=== PATIENT | male | born 1975 | race Caucasian/White ===

== ENCOUNTER → 2016-05-11 | Outpatient (CLI) | payer OTHER ==
--- NOTE | 2016-05-12 16:42 | DX ---
Left knee 4 views Right knee 4 views. CLINICAL INDICATION: Seropositive rheumatoid arthritis. Comparisons: None. FINDINGS: Left knee: Bony alignment of the knee is anatomic. Joint space is relatively well maintained with min imal medial joint space narrowing. No effusion or soft tissue calcifications. Normal variant fabella is noted. IMPRESSION: Minimal osteoarthritic changes of the left knee. Right knee: Bony alignment of the knee is anatomic. There is mild medial joint space narrowing. There is a normal variant fabella. No effusion. Impression: Minimal osteoarthritic changes of the right knee.
--- NOTE | 2016-05-12 16:42 | DX ---
Left hand 3 views Right hand 3 views Indication: Seropositive rheumatoid arthritis. FINDINGS: Left hand: Bony alignment of the hand is anatomic. Joint spaces are well maintained. No evidence of e rosions or soft tissue nodules. Impression: Normal 3 views left hand. Right hand: Bony alignment of the hand is anatomic. Joint spaces are well maintained. No evidence of joint space narrowing, erosions, or soft tissue nodules. Impression: Normal 3 views right hand
== END ==
LOC: CIMAGING 14:14
PROVIDERS: ATTEND Internal Medicine
DX: M17.0 Bilateral primary osteoarthritis of knee (principal)
CPT/HCPCS: 73130-PO; 73562-PO

== ENCOUNTER → 2016-11-22 | Outpatient (CLI) | payer OTHER | LOC: BRMIMAGING 13:26 | PROVIDERS: ATTEND Internal Medicine | DX: M79.622 Pain in left upper arm (principal) | CPT/HCPCS: 93971-PO ==